=== PATIENT | female | born 1970 | race Caucasian/White ===

== ENCOUNTER 2016-12-11 09:01 | Day surgery (SDC) | payer OTHER ==
[~2016-12-11] VITALS: Ht 172.7 cm; Wt 132.0 kg
[2016-12-11] VITALS (7 sets, daily range): BP systolic 125–147; BP diastolic 60–72; PULSE 105–118; RESP 14–17; O2SAT 96–100
[~2016-12-11 09:01] MED LIST: AZEL137S11 NS; FEXO180T85 PO; FLUT9.9S NS; HYDR-4003 PO; IBUP800T28 PO; METF500T4 PO; NYST1POW23 MC
[2016-12-11] MEDS ORDERED: Propofol 10,000 mCg/mL 20 mL Inj ONE (09:02)
[2016-12-11] MEDS ORDERED: Ondansetron 2 mg/mL 2 mL Inj ONE (09:02)
[2016-12-11] MEDS ORDERED: fentaNYL-PF 50 mCg/mL 2 mL Inj ONE (09:02)
[2016-12-11] MEDS ORDERED: Lidocaine PF 1% 30 mL Inj ONE (09:02)
[2016-12-11] MEDS ORDERED: MetoCLOpramide 5 mg/mL 2 mL Inj ONE (09:02)
[2016-12-11] MEDS: Lactated Ringer's 1,000 ML IV SCH ×2 (09:57→12:32)
[2016-12-11] MEDS ORDERED: Lactated Ringer's 1,000 ML IV SCH (12:18)
[2016-12-11] MEDS ORDERED: Lactated Ringer's 500 ML IV PRN (12:18)
--- NOTE | 2016-12-11 12:18 | PCM.HPANE ---
Patient Data Date of Service: Dec 11, 2016 Surgeon Admitting Provider: Attending Provider:Kasandra Camarillo MD Primary Care Physician:Gris Gaytan DO Other Provider:Lolita Viramontes Anesthesia Reason for Visit Hgsil On Papsmear Ht/WT & BMI Height (Feet): 5 Height (Inches): 8.00 Weight (Kilograms): 132.0 Body Mass Index 44.00 Allergies Coded Allergies: No Known Allergies (Unverified , 12/07/16) Past Anesthesia History Anesthesia History: Denies:: Anesthesia Reactions, Malignant Hyperthermia Diabetes History Hx Diabetes?: Yes Type of Diabetes: Type II Glycemic Control: Oral Medication Current Bedside Blood Glucose: 157 MRSA MRSA: No Medications Home Meds Incl Beta Lani: No Reported Medications Nystatin 1 Each Powder.ea.1 Each MC BID 12/07/16 Ibuprofen 800 Mg Ueasgc394 Mg PO TID PRN For Pain Ref 0 12/07/16 Hydrocodone-Acetaminophen 5-325 mg 1 Each Tablet1 Tablet PO BID PRN For Pain Ref 0 12/07/16 Fluticasone Propionate (Flonase Allergy Relief)50 Mcg/Actuation [place].susp9.9 Ml NS DAILY 12/07/16 Azelastine HCl 137 Mcg/0.137 Ml [place].xnhk226 Mcg NS BID 12/07/16 Fexofenadine (Julia Allergy)180 Mg Maetld228 Mg PO DAILY Ref 0 12/07/16 Metformin 500 Mg Eyxghj264 Mg PO BID Ref 0 12/07/16 History History of ENT Problems?: Yes HEENT History: Denies:: Sinus Problem (S/P NASAL RPR) Cardiovascular History: Denies:: Congestive Heart Failure Heart Murmur Hypertension Hx of Respiratory Problem?: No Respiratory History: Denies:: Tuberculosis Use of C-PAP Machine Hx Neurologic Problems?: Yes Neurological History: Positive for:: Headaches Hx of GI Problems?: No Hx of Problems?: No Female Hx: Denies:: Currently Skin History: Positive for:: History Skin Disorders? (HX VAGINAL ITCH) Denies:: Pressure Ulcers Hx Musculoskeletal Problems?: Yes Musculoskeletal History: Positive for:: Musculoskeletal Trauma (S/P B/L FOOT RPR'S,B/L ANKLE RPR'S) Hx of Psycho/Social Problems?: No Hx Surgeries?: Yes (nose,florina feet, florina ankles) Hx Any Other Health Problems?: Yes Other History: Denies:: Cancer Endocrine Disease Hospitalization Thyroid Disease Hx Diabetes: YesBedside Blood Glucose: 157 Hx Alcohol Use: NoHx Substance Use: No Smoking Status: Never Smoker Have You Smoked inLast 12 mo: No Stop/Bang S-Snoring: Do You Snore Loudly: No T-Tired: feel tired, fatigued: No O-Obsered: Observed not breath: No P-Blood Pressure: treated: No B- Body Mass Index > 35 kg/m2: Yes A- Age over 50: No N- Neck Large Circumference: Yes G- Gender Male: No LOAN Total Score: 2 LOAN Risk Assessment: Low Risk, <3 Yes Risk Assessment Category Category 1A: Patient has history of documented sleep apnea, and HAS NOT received any narcotic, sedative or anesthesia administration during this stay. Category 1B: Patient has history of documented sleep apnea, and HAS received any narcotic , sedative or anesthesia administration during this stay Category 2: Patient has SUSPECTED Obstructive Sleep Apnea, and HAS received any narcotic , sedative or anesthesia administration during this stay. Category 3: Patient has SUSPECTED Obstructive Sleep Apnea and HAS NOT received narcotic, sedative or anesthesia administration during this stay. Category 4: Outpatient in Procedural Areas with known sleep apnea or who screen positive for High Risk via the STOP/BANG questionnaire. Exam Exam Vital Signs Vital Signs Date Time Temp Pulse Resp B/P Pulse Ox O2 Delivery O2 Flow Rate FiO2 12/11/16 09:59 37.0 105 16 146/68 98 Room Air General Appearance: Alert, Oriented X3, Cooperative, Mild Distress (migraine headache now) HEENT/AIRWAY: MP 2 Lungs: Normal Air Movement Heart: Exam Unremarkable Meds/Labs/Diagnostics Admission Meds Current Medications Lactated Ringer's (Lr) 1,000 ml @ 120 mls/hr Q8H20M IV Last administered on t 09:57; Start 12/11/16 at 05:00; Stop 12/11/16 at 13:19 Bedside Blood Glucose: 157 Plan Impression Patient chart reviewed, patient interviewed and anesthestic plan with risks, benefits, and alternatives discussed, and informed consent obtained. NPO Status: 12/10 at 2130 ASA Physical Status: ASA2 Mod Systemic Disease Anesthetic Plan: GA Bene/Risks/Altern/Consents: Yes HP Complete Prior to Induction: Yes Donte Romo MD Dec 11, 2016 11:04
[2016-12-11] MEDS ORDERED: Ondansetron 2 mg/mL 2 mL Inj IVPUSH PRN ×2 (12:20→14:10)
[2016-12-11] MEDS ORDERED: Atropine 0.4 mg/mL Inj IVPUSH PRN (12:20)
[2016-12-11] MEDS ORDERED: fentaNYL-PF 50 mCg/mL 2 mL Inj IVPUSH PRN (12:20)
[2016-12-11] MEDS ORDERED: HYDROmorphone 1 mg/mL Inj IVPUSH PRN ×2 (12:20→14:10)
[2016-12-11] MEDS ORDERED: MetoCLOpramide 5 mg/mL 2 mL Inj IVPUSH PRN (12:20)
[2016-12-11] MEDS ORDERED: EPHEDrine Sulfate 50 mg/mL Inj IVPUSH PRN (12:20)
[2016-12-11] MEDS ORDERED: Dexamethasone 4 mg/mL Inj IVPUSH PRN (12:20)
[2016-12-11] MEDS ORDERED: Labetalol 5 mg/mL 4 mL Inj IV PRN (12:20)
[2016-12-11] MEDS ORDERED: hydrALAZINE 20 mg/mL Inj IVPUSH PRN (12:20)
[2016-12-11] MEDS ORDERED: Phenylephrine 10,000 mCg/mL Inj IVPUSH PRN (12:20)
[2016-12-11] MEDS ORDERED: oxyCODONE-Acetamin 5-325 mg Tablet PO PRN (14:10)
--- NOTE | 2016-12-11 14:18 | PCM.ANEP1 ---
Post Anesthesia Phase 1 PACU Phase 1 Assessment Date of Service: Dec 11, 2016 Vital Signs Vital Signs Date Time Temp Pulse Resp B/P Pulse Ox O2 Delivery O2 Flow Rate FiO2 12/11/16 09:59 37.0 105 16 146/68 98 Room Air Anesthetic Administered: GA Level of Alertness: Awake, talking BALDERAS's with Equal Strength: Yes Pain: No Nausea or Vomiting: No Oxygen Delivery: Nasal Cannula Lungs: Normal Air Movement Donte Romo MD Dec 11, 2016 14:18
--- NOTE | 2016-12-11 14:18 | PCM.ANEP2 ---
Post Anesthesia Evaluation ASA/CMS Post Anesthesia Date of Service: Dec 11, 2016 VS in Patient's Normal Range?: Yes Resp Stable; Airway Patent?: Yes CV Function & Hydration Stable: Yes Mental Status Recovered?: Yes Pain control Satisfactory?: Yes N/V Control Satisfactory?: Yes Donte Romo MD Dec 11, 2016 14:18
--- NOTE | 2016-12-11 14:19 | PCM.SURGOP ---
Surgical Operative Report Date of Service: Dec 11, 2016 Pre Operative Diagnosis 1. ROCIO 2 2. Morbid Obesity 3. Type II DM Post Operative Diagnosis 1. ROCIO 2 2. Morbid Obesity 3. Type II DM Procedure: 1. LEEP Surgeon and Sizing Sponger: Surgeon: Kasandra Camarillo MD Assistants: Janna Morales DO, PGY1 Indication for Procedure 46 y/o with an HGSIL pap smear and ROCIO 2 confirmed on biopsy Findings: Intraoperative findings showing patient has a grade 2 cystocele and rectocele. The cervix was normal in appearance. After the application of 5% acetic acid there was no apparent acetowhite epithelium. Procedure Details The patient was taken to the operating room where her general anesthesia was found to be adequate. She was placed in a lithotomy position in the [facility] and prepared and draped in the normal sterile fashion. The exam findings were as noted above. A blue coated grave speculum was inserted into the patient's vagina and the cervix was identified. 5% acetic acid solution was applied to the cervix and allowed to sit for 5 minutes. On exam today there was no apparent acetowhite epithelium appreciated. The cervix was then grasped with a single-tooth tenaculum and a LEEP was performed. A wire loop was used to remove a portion of the anterior cervix and a similar fashion a portion posterior cervix was removed and sent to pathology. A top HAT was taken and sent to pathology. After the portion of the cervix were excised the patient had significant bleeding from the cervical bed. Several interrupted sutures of 0 Vicryl suture were used for hemostasis. The bed of the cervix was cauterized with the rollerball cautery device. Monsel's solution and pressure applied for 5 minutes and good hemostasis was obtained. There is approximately 350 mL blood loss during this portion of the procedure. Once hemostasis was assured all instruments removed from the patient's vagina. All lap instrument and needle counts were correct 2 at the end of the procedure and patient was taken to the recovery room awake and in good condition Complications There were no periprocedural complications identified. Surgical Specimen Removed: Yes Specimen sent to Pathology: Yes Surgical Specimen description: 1. Portion of anterior cervix 2. Portion posterior cervix 3. Top HAT Anesthetic Plan: GA Grafts, Implants: None Output, Estimated Blood Loss: 350 Blood Administration during tafoya: No Catheters: None Kasandra Camarillo MD Dec 11, 2016 14:19
--- NOTE | 2016-12-11 14:25 | PCM.DIGYN ---
Surgical Discharge Instruction Dates of Hospitalization Date of Hospital Admission 12/11/2016 Providers Admitting Physician: Primary Care Physician: Gris Gaytan DO Attending Physician: Kasandra Camarillo MD Diagnosis at Time of Discharge Diagnosis at time of discharge ROCIO 2 Post-operative diagnosis 1. ROCIO 2 2. Morbid Obesity 3. Type II DM Problems: Diet Discharge Diet: No restrictions Activity Discharge Activity-General: Try not to overdue, Be up and about, No driving while taking narcotic Dressing and Incisional Care Hygiene: May shower, NO bathtub, hot tub or whirlpool (until vaginal bleeding and discharge have resolved) Additional Instructions Additional Instructions Nothing per vagina for two weeks or until vaginal discharge and bleeding have resolved. No sex until bleeding and discharge have resolved. Follow Up Plan Follow-up appointment: Weeks (2) Call your provider for: Fever, Chills, Heavy vaginal bleeding, Increasing pain Kasandra Camarillo MD Dec 11, 2016 14:25
[2016-12-11] MEDS ORDERED: OXYC1TAB24 PO (14:29)
--- NOTE | 2016-12-13 14:14 | PATH ---
SURGICAL PATHOLOGY Attending Physician:Kasandra Camarillo, CASE STATUS: Signed Out PATIENT NAME: MIGUEL ANGEL BROWN PID: [id number] : 1970 DATE COLLECTED:12/11/2016 23:16 SPECIMEN: 1: Cervix, Leep 2: Cervix, Leep 3: Cervix, Leep CLINICAL HISTORY: HGSIL ON PAPSMEAR 1). ANTERIOR CERVIX 2). POSTERIOR CERVIX 3). CERVICAL HAT FINAL DIAGNOSIS: 1.ANTERIOR CERVIX, LEEP CONIZATION BIOPSY: LSIL (ROCIO 1). THE ECTOCERVICAL MARGIN IS NEGATIVE FOR DYSPLASIA. 2.POSTERIOR CERVIX, LEEP CONIZATION BIOPSY: LSIL (ROCIO 1) WITH FOCAL HSIL (ROCIO 2) AT THE ENDOCERVICAL MARGIN. THE ECTOCERVICAL MARGIN IS NEGATIVE FOR DYSPLASIA. 3.CERVICAL HAT, LEEP: ENDOCERVICAL MUCOSA WITH LSIL (ROCIO 1). THE ENDOCERVICAL MARGIN IS NEGATIVE FOR DYSPLASIA. ICD10 CODE N87.1 GROSS DESCRIPTION: The specimen is received in three formalin filled containers labeled with the patient's name. 1). The specimen is sublabeled "anterior cervix" and consists of a pink-ko portion of tissue which measures 3.0 x 1.2 x 0.5 CM. The specimen is inked blue. The specimen is sectioned into 8 pieces and entirely submitted in cassettes 1A, 1B. 2). The specimen is sublabeled "posterior cervix" and consists of a pink-ko portion of tissue which measures 2.6 x 1.2 x 0.6 CM. The specimen is inked blue. The specimen is sectioned into 8 pieces and entirely submitted in cassettes 2A, 2B. 3). The specimen is sublabeled "hat, cervical" and consists of a U-shaped portion of tissue which measures 1.5 x 0.8 x 0.6 CM. The specimen is inked blue. The specimen is sectioned into 6 pieces and entirely submitted in cassettes 3A, 3B. 12/11/2016 [facility] MICRO DESCRIPTION: See diagnosis. ICD-9 CODES: CPT CODES: 1: 23250 2: 89537 3: 55479 Electronically Signed Out Kimberly Krishnamurthy MD [facility] Pathology [facility] [address] [place] [address], [place] [address] Technical component performed at [facility], [address], [place], [address]
== END 2016-12-11 23:59 | disposition home or self-care (01) ==
LOC: SAS 09:01
PROVIDERS: ATTEND Obstetrics & Gynecology
DX: R87.613 High grade squamous intraepithelial lesion on cytologic smear of cervix (HGSIL) (principal); E11.9 Type 2 diabetes mellitus without complications; R51 Headache; Z79.899 Other long term (current) drug therapy
CPT/HCPCS: 57522; J2250; J2405; J2765; J3010; J7120